=== PATIENT | male | born 1970 | race Hispanic/Latino ===

== ENCOUNTER → 2019-01-12 | Outpatient (CLI) | payer SELFPAY | LOC: WCC 11:26 | PROVIDERS: ATTEND Family Medicine Adult Medicine | DX: S91.309A Unspecified open wound, unspecified foot, initial encounter (principal); E11.9 Type 2 diabetes mellitus without complications; R60.0 Localized edema; W31.9XXA Contact with unspecified machinery, initial encounter | CPT/HCPCS: 10140; 87071; 87075; 87205 ==

== ENCOUNTER → 2019-01-19 | Outpatient (CLI) | payer SELFPAY | LOC: WCC 10:05 | PROVIDERS: ATTEND Family Medicine Adult Medicine | DX: E11.9 Type 2 diabetes mellitus without complications (principal); S91.309A Unspecified open wound, unspecified foot, initial encounter; S90.821A Blister (nonthermal), right foot, initial encounter; R60.0 Localized edema; B95.2 Enterococcus as the cause of diseases classified elsewhere; B96.5 Pseudomonas (aeruginosa) (mallei) (pseudomallei) as the cause of diseases classified elsewhere; W31.9XXA Contact with unspecified machinery, initial encounter ==

== ENCOUNTER → 2019-01-31 | Outpatient (CLI) | payer SELFPAY | LOC: WCC 13:31 | PROVIDERS: ATTEND Family Medicine Adult Medicine | DX: E11.9 Type 2 diabetes mellitus without complications (principal); S91.309A Unspecified open wound, unspecified foot, initial encounter; S90.821A Blister (nonthermal), right foot, initial encounter; R60.0 Localized edema; B95.2 Enterococcus as the cause of diseases classified elsewhere; B96.5 Pseudomonas (aeruginosa) (mallei) (pseudomallei) as the cause of diseases classified elsewhere; W31.9XXA Contact with unspecified machinery, initial encounter ==

== ENCOUNTER → 2019-02-09 | Outpatient (CLI) | payer SELFPAY | LOC: WCC 12:14 | PROVIDERS: ATTEND Family Medicine Adult Medicine | DX: E11.9 Type 2 diabetes mellitus without complications (principal); S91.309A Unspecified open wound, unspecified foot, initial encounter; S90.821A Blister (nonthermal), right foot, initial encounter; R60.0 Localized edema; B95.2 Enterococcus as the cause of diseases classified elsewhere; B96.5 Pseudomonas (aeruginosa) (mallei) (pseudomallei) as the cause of diseases classified elsewhere; W31.9XXA Contact with unspecified machinery, initial encounter ==